=== PATIENT | male | born 1945 | race Caucasian/White ===

== ENCOUNTER 2017-06-19 10:34 | Observation (INO) | payer MEDICARE ==
--- NOTE | 2017-06-19 10:56 | ERNOTE ---
Chest Pain/Cardiac HPI Chief Complaint: Palpitations Time Seen by Provider: 06/19/17 10:34 Source: patient Exam Limitations: no limitations Immunizations: IMMUNIZATION HX Immunizations Up to Date Yes History of Influenza Vaccine No Hx Pneumococcal Vaccination No Allergies/Adverse Reactions: Allergies No Known Allergies Allergy (Verified 03/10/14 18:10) Home Medications: HOME MEDICATIONS Calcium Carbonate/Vitamin D3 [Calcium 600-Vit D3 200 Tablet] 2 each PO DAILY [Last Taken 12/05/13 21:00] Docusate Sodium [Colace] 100 mg PO DAILY 11/08/12 [Last Taken 12/05/13 21:00] Multivitamin [Multivitamins] 1 each PO DAILY 11/08/12 [Last Taken 12/05/13 09:00 ] Simvastatin [Zocor] 40 mg PO HS 11/08/12 [Last Taken 12/05/13 21:00] Timolol Maleate/Pf [Timoptic 0.5% Ocudose Drop] 1 each OP DAILY 11/08/12 [Last Taken 12/05/13 09:00] Alendronate Sodium [Fosamax] 70 mg PO Q7D 12/06/13 [Last Taken Unknown] Aspirin [Aspirin Chewable] 81 mg PO DAILY 12/06/13 [Last Taken 12/05/13 09:00] Amitriptyline HCl [Elavil] 50 mg PO HS 01/14/14 [Last Taken Unknown] Naproxen 500 mg PO BID 01/14/14 [Last Taken Unknown] Albuterol Sulfate [Proair Respiclick] 90 mcg IH QID 06/19/17 [Last Taken Unknown ] Fluticasone Propionate 50 mcg NS BID 06/19/17 [Last Taken Unknown] Ipratropium/Albuterol Sulfate [Combivent Respimat Inhal [place]] 1 puff IH QID [Last Taken Unknown] Mometasone Furoate [Asmanex] 220 mcg IH BID 06/19/17 [Last Taken Unknown] Narrative: Patient was at his doctors office for a routine check up when he was noticed to be 'in and out of being responsive', EKG showed afib with HR in 140's. Patient states that he doesn't feel good which has been going on for a long time. He has a long standing history of COPD since serving in the [place] war, intermittent dizziness, denies any chest pain, no palpitation. Review of Systems - Review of Systems Constitutional: Present: malaise - chronic. Absent: recent illness, fever ENT: Absent: nose congestion Respiratory: Present: shortness of breath - at baseline, cough - at baseline Cardiology: Absent: chest pain, palpitations Gastrointestinal/Abdominal: Absent: nausea, vomiting, abdominal pain Genitourinary: Present: no symptoms reported Musculoskeletal: Present: no symptoms reported Neurological: Present: dizziness/light-headedness. Absent: headache - Patient's Past Medical History Patient History - Medical: No pertinent hx Patient History - Cardiac/Respiratory: COPD, Home O2 Use, Other Patient History - Cancer: No Hx of Cancer Patient History - Surgical Procedures: Other Patient History - Other: None - Social History Living Situations: home Psych History: No pertinent hx Smoking Status: Former smoker Alcohol Use: none - used to be a heavy drinker till the - Immunizations Immunizations Up to Date: Yes Hx Pneumococcal Vaccination: No History of Influenza Vaccine: No Physical Exam - Physical Exam General Appearance: Present: wd/wn, alert, no apparent distress Head Exam: Present: normal inspection Respiratory: Present: no respiratory distress, no accessory muscle use, lungs clear, decreased breath sounds - !! Cardiovascular/Chest: Present: regular rate, rhythm Gastrointestinal/Abdominal: Present: nontender, nondistended, soft Extremity Exam: Present: no edema Neurological Exam: Present: alert, oriented, normal mood/affect Skin Exam: Present: normal color, warm/dry ED Progress - Results and Orders Patient's Lab Results:: I have reviewed the patient's lab results. - Vital Signs Patient's Vital Signs:: I have reviewed the patient's vital signs. Vital Signs: Vital Signs 06/19/17 06/19/17 10:38 10:44 Temperature 36.5 C Pulse Rate 86 86 Respiratory 19 23 H Rate Blood Pressure 119/81 119/81 O2 Sat by Pulse 100 87 L Oximetry - EKG EKG: NSR, no ST T wave changes, other - PAC, no acute changes EKG read: Interp. by me - X-Ray X-Ray #1 X-Ray: chest - chronic, no acute findings Interpretation: Reviewed by me - Progress/Reassessment Chief Complaint: Palpitations Progress Note-Subjective: 06/19/17 10:54 EKG from clinic shows a-fib with HR 146 06/19/17 11:39 discussed Xray and lab results, will get chest CT as elevated d-dimer 06/19/17 12:00 patient blood pressure decreased since coming to ER, on review of clinic data blood pressure at baseline 120's systolic, will start fluids and get LA 06/19/17 12:[address] with patient and family, patient denies any acute symptoms LA elevated but no source of infection, normal WBC, no fever, stable O2 sat 06/19/17 13:01 discussed with gee Leon to admit for observation for new onset afib continue IV fluids, start lovenox, will discussed medical terminologist anticoagulation once admitted schedule Echo Departure Clinical Impression: New onset a-fib - Departure Disposition: [facility] Condition: Stable
[2017-06-19 11:02] LABS: Hematocrit 42.1 % (42.0-52.0); Hemoglobin 13.7 gm/dL (13.5-18.0); Mean Cell Volume 91.3 fl (78-100); Mean Corpuscular Hemoglobin 29.7 pg (27-31); Mean Corpuscular Hgb Conc 32.5 g/dl (32-36); Mean Platelet Volume 9.8 fl (6.0-9.5); Neutrophil # 6.3 K/mm3 (1.3-6.0); Neutrophil % 71.7 % (42-75.0); Platelet Count 279 K/mm3 (150-450); Red Blood Count 4.61 M/mm3 (4.7-6.0); Red Cell Distribution Width 14.3 % (11.5-14.0); White Blood Count 8.8 K/mm3 (4.0-10.5)
[2017-06-19 11:20] LABS: Troponin I 0.021 ng/ml (0.00-0.10)
[2017-06-19 11:23] LABS: Albumin * 3.6 gm/dl (3.4-5.0); Anion Gap 10.4 mmol/L (6.8-13.8); BUN/Creatinine Ratio 23.9 (9.0-21.6); Bilirubin, Total 0.4 mg/dL (0.0-1.1); Carbon Dioxide 31.8 mmol/L (24-32.6); Potassium 4.2 mmol/L (3.4-4.6); TSH * 6.062 uIU/mL (0.358-3.74); Total Protein 7.5 gm/dL (6.2-8.2)
[2017-06-19] MEDS ORDERED: NORMAL SALINE 1,000 ML IV ONE (12:02)
[2017-06-19] MEDS ORDERED: ENOXAPARIN SODIUM 80 MG/0.8 ML DISP.SYRIN SC SCH (13:15)
[2017-06-19 13:39] LABS: Urine Bilirubin Negative (NEGATIVE); Urine Blood Negative /ul (NEGATIVE); Urine Ketone Negative (NEGATIVE); Urine Nitrite Negative (NEGATIVE); Urine Protein Negative (NEGATIVE); Urine Specific Gravity 1.015 SP.GR. (1.005-1.030); Urine Urobilinogen Normal (NORMAL)
[2017-06-19 13:49] LABS: Urine Appearance Clear; Urine Bacteria None Seen; Urine Color Yellow; Urine RBC None Seen /hpf (0-5); Urine WBC 0-5 /hpf (0-5)
--- NOTE | 2017-06-19 16:30 | HP ---
Chief Complaint - Chief Complaint Date of Service: 06/19/17 Time of Service: 16:14 Chief Complaint: dizziness/lightheadedness History of Present Illness: Kolby Barahona, is a 71-year-old white male, with previous medical history of COPD , hyperlipidemia, degenerative osteoarthritis who was admitted on 06/19/2017 for dizziness and lightheadedness. The patient while in the waiting room could not read the signs on the wall and felt that there was something wrong with him. When he walked in to my office for his regular follow-up, he noticed that he was getting dizzy and lightheaded. When he was examined he was found to have a rapid, irregular heartbeat and an EKG was done. This showed the patient was in atrial fibrillation with rapid ventricular response of 147 and patient started to feel like he was going to pass out. His blood pressure was 80/50. He was then transferred to the emergency room for further evaluation. By the time he got to the emergency room as per emergency room doctor he was back to normal sinus rhythm with a blood pressure in the low 100s over 70s. Soon after that he again started to have decrease in his blood pressure in the 90s. He was then admitted for observation, evaluation and IV hydration. His CTS did not shoe P.E., tropronin was negative, TSH was elevated. - Patient's Past Medical History Patient History - Medical: Osteoarthritis, Osteoporosis Patient History - Cardiac/Respiratory: COPD, Hyperlipidemia, Home O2 Use, Other Patient History - Cancer: No Hx of Cancer Patient History - Surgical Procedures: Cataracts, Pneumothorax, Other Patient History - Other: None - Family History Mother Family History - Medical: , History Unknown Family History - Cardiac/Respiratory: History Unknown Family History - Cancer: History Unknown Father Family History - Medical: Family History - Cardiac/Respiratory: History Unknown Family History - Cancer: Bone, Lung Brother Family History - Medical: Family History - Cardiac/Respiratory: History Unknown Family History - Cancer: History Unknown Sister Family History - Medical: No pertinent hx Family History - Cardiac/Respiratory: No pertinent hx Family History - Cancer: No pertinent family hx - Social History Living Situations: spouse Psych History: No pertinent hx Smoking Status: Former smoker Alcohol Use: none Drug Use: none - Immunizations Immunizations Up to Date: Yes Hx Pneumococcal Vaccination: No History of Influenza Vaccine: No Review Of Systems (GEN) - Review of Systems Generalized/Overall Review: Absent: Chills, Fever EENTM: Present: Blurred Vision Respiratory: Present: Cough. Absent: Shortness of Breath Cardiac: Absent: Chest Pain, Palpitations Abdominal: Absent: Nausea, Vomiting Genitourinary: Absent: Urgency, Frequency Musculoskeletal: Present: Joint Pain Immunizations: IMMUNIZATION HX Immunizations Up to Date Yes History of Influenza Vaccine No Hx Pneumococcal Vaccination No Allergies/Adverse Reactions: Allergies Allergy/AdvReac Type Severity Reaction Status Date / Time No Known Allergies Allergy Verified 06/19/17 15:48 Home Medications: HOME MEDICATIONS Calcium Carbonate/Vitamin D3 [Calcium 600-Vit D3 200 Tablet] 2 each PO DAILY [Last Taken 12/05/13 21:00] Docusate Sodium [Colace] 100 mg PO DAILY 11/08/12 [Last Taken 12/05/13 21:00] Multivitamin [Multivitamins] 1 each PO DAILY 11/08/12 [Last Taken 12/05/13 09:00 ] Simvastatin [Zocor] 40 mg PO HS 11/08/12 [Last Taken 12/05/13 21:00] Timolol Maleate/Pf [Timoptic 0.5% Ocudose Drop] 1 each OP DAILY 11/08/12 [Last Taken 12/05/13 09:00] Alendronate Sodium [Fosamax] 70 mg PO Q7D 12/06/13 [Last Taken Unknown] Aspirin [Aspirin Chewable] 81 mg PO DAILY 12/06/13 [Last Taken 12/05/13 09:00] Amitriptyline HCl [Elavil] 50 mg PO HS 01/14/14 [Last Taken Unknown] Naproxen 500 mg PO BID 01/14/14 [Last Taken Unknown] Albuterol Sulfate [Proair Respiclick] 90 mcg IH QID 06/19/17 [Last Taken Unknown ] Fluticasone Propionate 50 mcg NS BID 06/19/17 [Last Taken Unknown] Ipratropium/Albuterol Sulfate [Combivent Respimat Inhal [place]] 1 puff IH QID [Last Taken Unknown] Mometasone Furoate [Asmanex] 220 mcg IH BID 06/19/17 [Last Taken Unknown] Exam - Exam Vital Signs: Vital Signs - Last Taken Temp 36.2 C L 06/19/17 15:08 Pulse 68 06/19/17 15:08 Resp 20 06/19/17 15:08 BP 115/66 06/19/17 15:08 Pulse Ox 100 06/19/17 15:08 Constitutional: Present: Alert, Oriented x3, Cooperative ENT Exam: Present: hearing grossly normal Eye Exam: bilateral eye: normal inspection, PERRL, EOMI Neck: Present: supple Respiratory: Present: decreased breath sounds, No rales, No wheezing Cardiovascular/Chest: Present: regular rate, rhythm, no JVD, no murmur Abdomen: Present: Normal bowel sounds, soft, nontender, nondistended Extremity: Present: no pedal edema, no calf tenderness Diagnostic Studies: Laboratory Results WBC 8.8 K/mm3 (4.0-10.5) 06/19/17 10:55 RBC 4.61 M/mm3 (4.7-6.0) L 06/19/17 10:55 Hgb 13.7 gm/dL (13.5-18.0) 06/19/17 10:55 Hct 42.1 % (42.0-52.0) 06/19/17 10:55 MCV 91.3 fl (78-100) 06/19/17 10:55 MCH 29.7 pg (27-31) 06/19/17 10:55 MCHC 32.5 g/dl (32-36) 06/19/17 10:55 RDW 14.3 % (11.5-14.0) H 06/19/17 10:55 Plt Count 279 K/mm3 (150-450) 06/19/17 10:55 MPV 9.8 fl (6.0-9.5) H 06/19/17 10:55 Immature Gran % (Auto) 0.20 % (0.001-0.429) 06/19/17 10:55 Immature Gran # (Auto) 0.02 K/mm3 (0.000-0.0310) 06/19/17 10:55 Neutrophils % 71.7 % (42-75.0) 06/19/17 10:55 Lymphocytes % 17.4 % (20-51) L 06/19/17 10:55 Monocytes % 9.3 % (0.0-9) H 06/19/17 10:55 Eosinophils % 1.1 % (0.0-3.0) 06/19/17 10:55 Basophils % 0.3 % (0.0-1.0) 06/19/17 10:55 Nucleated RBC % 0.0 k/mm3 (0-1) 06/19/17 10:55 Neutrophils # 6.3 K/mm3 (1.3-6.0) H 06/19/17 10:55 Lymphocytes # 1.5 k/mm3 (1.5-3.5) 06/19/17 10:55 Monocytes # 0.8 k/mm3 (0.0-1.0) 06/19/17 10:55 Eosinophils # 0.1 k/mm3 (0.0-0.7) 06/19/17 10:55 Absolute Basophils 0.0 k/mm3 (0.0-0.1) 06/19/17 10:55 D-Dimer 0.53 mg/L (0.19-0.49) H 06/19/17 10:55 Sodium 143 mmol/L (132-142) H 06/19/17 10:55 Plasma Sodium 143 mmol/L (130-142) H 06/19/17 10:55 Potassium 4.2 mmol/L (3.4-4.6) 06/19/17 10:55 Chloride 105 mmol/L (97-106) 06/19/17 10:55 Carbon Dioxide 31.8 mmol/L (24-32.6) 06/19/17 10:55 Anion Gap 10.4 mmol/L (6.8-13.8) 06/19/17 10:55 BUN 22 mg/dL (6-23) 06/19/17 10:55 Creatinine 0.92 mg/dL (0.4-1.4) 06/19/17 10:55 Est GFR (Non-Af Amer) 86 mL/min (60-130) 06/19/17 10:55 BUN/Creatinine Ratio 23.9 (9.0-21.6) H 06/19/17 10:55 Random Glucose 114 mg/dL (70-110) H 06/19/17 10:55 Lactic Acid, Venous 2.3 mmol/L (0.4-1.9) H* 06/19/17 10:55 Calcium 9.0 mg/dL (7.9-10.9) 06/19/17 10:55 Calcium Adj for Albumin 9.0 mg/dL (8.4-10.2) 06/19/17 10:55 Total Bilirubin 0.4 mg/dL (0.0-1.1) 06/19/17 10:55 AST 14 U/L (0-48) 06/19/17 10:55 ALT 19 U/L (19-67) 06/19/17 10:55 Alkaline Phosphatase 80 U/L (50-170) 06/19/17 10:55 Troponin I 0.021 ng/ml (0.00-0.10) 06/19/17 10:55 Total Protein 7.5 gm/dL (6.2-8.2) 06/19/17 10:55 Albumin 3.6 gm/dl (3.4-5.0) 06/19/17 10:55 TSH 6.062 uIU/mL (0.358-3.74) H 06/19/17 10:55 Free T4 1.23 ng/dL (0.76-1.46) 06/19/17 10:55 Urine Color Yellow 06/19/17 13:29 Urine Appearance Clear 06/19/17 13:29 Urine pH 6.0 pH (5.0-7.0) 06/19/17 13:29 Ur Specific [employer] 1.015 SP.GR. (1.005-1.030) 06/19/17 13:29 Urine Protein Negative mg/dL (NEGATIVE) 06/19/17 13:29 Urine Glucose (UA) Negative mg/dL (NEGATIVE) 06/19/17 13:29 Urine Ketones Negative mg/dL (NEGATIVE) 06/19/17 13:29 Urine Blood Negative /ul (NEGATIVE) 06/19/17 13:29 Urine Nitrate Negative (NEGATIVE) 06/19/17 13:29 Urine Bilirubin Negative mg/dl (NEGATIVE) 06/19/17 13:29 Urine Urobilinogen Normal EU/dl (NORMAL) 06/19/17 13:29 Ur Leukocyte Esterase Negative /ul (NEGATIVE) 06/19/17 13:29 Urine RBC None seen /hpf (0-5) 06/19/17 13:29 Urine WBC 0-5 /hpf (0-5) 06/19/17 13:29 Ur Epithelial Cells None seen /hpf (0-5) 06/19/17 13:29 Urine Bacteria None seen (NONE) 06/19/17 13:29 Urine Culture Comments No culture indicated 06/19/17 13:29 Assessment/Plan - Assessment/Plan (1) New onset a-fib Assessment: paroxysmal AFib. He is back to NSR. Based on his CHADS score whic is 0, he may or not be on ASA but will keep him on ASA since he is already been on it. Will get Echocardiogram . Problem: Acute (2) Dizzinesses Problem: Resolved (3) Light-headedness Problem: Resolved (4) Osteoarthritis Problem: Chronic (5) Chronic obstructive lung disease Assessment: continue with breathing treatments. Problem: Chronic
[2017-06-19] MEDS: NORMAL SALINE 1,000 ML IV PRN (16:38)
[2017-06-19] MEDS ORDERED: FLU VACC QS2017-18(6MOS UP)/PF 60 MCG/0.5 ML SYRINGE IM ONE (17:00)
[2017-06-19] MEDS: ALBUTEROL SULFATE 2.5 MG/0.5 ML VIAL.NEB IH SCH (18:18)
[2017-06-19] MEDS: ALBUTEROL SULFATE/IPRATROPIUM 3 ML NEBU IH SCH (18:20)
[2017-06-19] MEDS: BUDESONIDE 0.5 MG/2 ML VIAL.NEB IH SCH (18:20)
[2017-06-19] MEDS: METOPROLOL TARTRATE 25 MG TABLET PO SCH (18:49)
[2017-06-19] MEDS: FLUTICASONE PROPIONATE 120 SPRAY INHALER NS SCH (20:15)
[2017-06-19] MEDS ORDERED: SIMVASTATIN 40 MG TABLET PO SCH (21:00)
[2017-06-19] MEDS ORDERED: AMITRIPTYLINE HCL 50 MG TABLET PO SCH (21:00)
[2017-06-20] MEDS: NORMAL SALINE 1,000 ML IV PRN ×2 (00:03→08:05)
[2017-06-20] MEDS: ALBUTEROL SULFATE/IPRATROPIUM 3 ML NEBU IH SCH ×2 (06:17→10:04)
[2017-06-20] MEDS: ALBUTEROL SULFATE 2.5 MG/0.5 ML VIAL.NEB IH SCH ×2 (06:18→10:04)
[2017-06-20] MEDS: BUDESONIDE 0.5 MG/2 ML VIAL.NEB IH SCH (06:19)
[2017-06-20] MEDS: METOPROLOL TARTRATE 25 MG TABLET PO SCH (06:44)
[2017-06-20] MEDS: FLUTICASONE PROPIONATE 120 SPRAY INHALER NS SCH (08:07)
[2017-06-20] MEDS ORDERED: METOPROLOL TARTRATE 25 MG TABLET PO SCH (08:25)
[2017-06-20] MEDS ORDERED: TIMOLOL MALEATE 50 DROP BTL OP SCH (09:00)
[2017-06-20] MEDS ORDERED: ASPIRIN 325 MG TABLET.DR PO SCH (09:00)
[2017-06-20] MEDS ORDERED: MULTIVITAMINS 1 CAP CAPSULE PO SCH (09:00)
[2017-06-20] MEDS ORDERED: DOCUSATE SODIUM 100 MG CAPSULE PO SCH (09:00)
--- NOTE | 2017-06-20 11:30 | DS ---
(1) New onset a-fib Diagnosis(s): paroxysmal AFib Problem: Resolved (2) Dizzinesses Problem: Resolved (3) Light-headedness Problem: Resolved (4) Osteoarthritis Problem: Chronic (5) Chronic obstructive lung disease Problem: Chronic Description of Stay: Kolby Barahona, is a 71-year-old white male, with previous medical history of COPD , hyperlipidemia, degenerative osteoarthritis who was admitted on 06/19/2017 for dizziness and lightheadedness. The patient while in the waiting room could not read the signs on the wall and felt that there was something wrong with him. When he walked in to my office for his regular follow-up, he noticed that he was getting dizzy and lightheaded. When he was examined he was found to have a rapid, irregular heartbeat and an EKG was done. This showed the patient was in atrial fibrillation with rapid ventricular response of 147 and patient started to feel like he was going to pass out. His blood pressure was 80/50. He was then transferred to the emergency room for further evaluation. By the time he got to the emergency room as per emergency room doctor he was back to normal sinus rhythm with a blood pressure in the low 100s over 70s. Soon after that he again started to have decrease in his blood pressure in the 90s. He was then admitted for observation, evaluation and IV hydration. His CTS did not show P.E., tropronin was negative, TSH was elevated with normal FT4. Overnight he stayed in NSR, HR in the 50's as I started him on metoprolol. His CHADS score is 0 and so will keep him on his ASA anyway. Procedures Performed: none Discharge Disposition: Home self care Disposition: Home self-care Condition: Stable Discharge Activity: Activity as tolerated Discharge Diet: General/regular food Referrals: Marcellus Peterson MD [Primary Care Provider] - Additional Patient Instructions (free text): Please make TCM appointment at discharge,if applicable. Thank you! Iman @ ext. [phone]. Follow up with PCP in 1 week. Prescriptions (Any new or edited meds): Metoprolol Tartrate [Lopressor] 12.5 mg PO Q12H #60 tablet Complete Home Medications List: Complete Home Medication List: Calcium Carbonate/Vitamin D3 [Calcium 600-Vit D3 200 Tablet] 2 each PO DAILY Docusate Sodium [Colace] 100 mg PO DAILY 11/08/12 Multivitamin [Multivitamins] 1 each PO DAILY 11/08/12 Simvastatin [Zocor] 40 mg PO HS 11/08/12 Timolol Maleate/Pf [Timoptic 0.5% Ocudose Drop] 1 each OP DAILY 11/08/12 Alendronate Sodium [Fosamax] 70 mg PO Q7D 12/06/13 Aspirin [Aspirin Chewable] 81 mg PO DAILY 12/06/13 Amitriptyline HCl [Elavil] 50 mg PO HS 01/14/14 Naproxen 500 mg PO BID 01/14/14 Albuterol Sulfate [Proair Respiclick] 90 mcg IH QID 06/19/17 Fluticasone Propionate 50 mcg NS BID 06/19/17 Ipratropium/Albuterol Sulfate [Combivent Respimat Inhal [place]] 1 puff IH QID Mometasone Furoate [Asmanex] 220 mcg IH BID 06/19/17 Metoprolol Tartrate [Lopressor] 12.5 mg PO Q12H #60 tablet 06/20/17
[2017-06-20 11:41] VITALS: BP 142/74
[2017-06-21] MEDS ORDERED: ALENDRONATE SODIUM 70 MG TABLET PO SCH (06:00)
--- NOTE | 2017-06-25 10:28 | ECHO ---
This report is available in the EMR
== END 2017-06-20 15:03 | disposition home or self-care (01) ==
LOC: ER 10:34 → MS 13:11
PROVIDERS: ADMIT Internal Medicine; ATTEND Internal Medicine
DX: I48.91 Unspecified atrial fibrillation (principal); R42 Dizziness and giddiness; M15.9 Polyosteoarthritis, unspecified; J44.9 Chronic obstructive pulmonary disease, unspecified; Z87.891 Personal history of nicotine dependence; E78.5 Hyperlipidemia, unspecified; M81.0 Age-related osteoporosis without current pathological fracture; Z23 Encounter for immunization
CPT/HCPCS: 36415; 71020; 71275; 80053; 81001; 83605; 84439; 84443; 84481; 84484; 85025; 85379; 90686; 93005; 93306; 94640; 96372; 99284; G0008; G0378

== ENCOUNTER 2017-08-14 11:55 | Emergency (ER) | payer MEDICARE ==
[2017-08-14] MEDS ORDERED: ALBUTEROL SULFATE/IPRATROPIUM 3 ML NEBU IH ONE ×4 (12:04→13:48)
[2017-08-14] MEDS ORDERED: METHYLPREDNISOLONE SOD SUCC/PF 40 MG/ML VIAL IV ONE (12:05)
--- NOTE | 2017-08-14 12:15 | ERNOTE ---
Dyspnea - Date Date of Service: 08/14/17 - General Presenting Symptoms: shortness of breath Time Seen by Provider: 08/14/17 12:04 Source: patient Exam Limitations: no limitations - Immun/Allergies/Home Medications Immunizations: IMMUNIZATION HX Immunizations Up to Date Yes History of Influenza Vaccine No Hx Pneumococcal Vaccination No Allergies/Adverse Reactions: Allergies No Known Allergies Allergy (Verified 08/14/17 12:09) Home Medications: HOME MEDICATIONS Calcium Carbonate/Vitamin D3 [Calcium 600-Vit D3 200 Tablet] 2 each PO DAILY [Last Taken 12/05/13 21:00] Docusate Sodium [Colace] 100 mg PO DAILY 11/08/12 [Last Taken 12/05/13 21:00] Multivitamin [Multivitamins] 1 each PO DAILY 11/08/12 [Last Taken 12/05/13 09:00 ] Simvastatin [Zocor] 40 mg PO HS 11/08/12 [Last Taken 12/05/13 21:00] Timolol Maleate/Pf [Timoptic 0.5% Ocudose Drop] 1 each OP DAILY 11/08/12 [Last Taken 12/05/13 09:00] Alendronate Sodium [Fosamax] 70 mg PO Q7D 12/06/13 [Last Taken Unknown] Aspirin [Aspirin Chewable] 81 mg PO DAILY 12/06/13 [Last Taken 12/05/13 09:00] Amitriptyline HCl [Elavil] 50 mg PO HS 01/14/14 [Last Taken Unknown] Naproxen 500 mg PO BID 01/14/14 [Last Taken Unknown] Albuterol Sulfate [Proair Respiclick] 90 mcg IH QID 06/19/17 [Last Taken Unknown ] Fluticasone Propionate 50 mcg NS BID 06/19/17 [Last Taken Unknown] Mometasone Furoate [Asmanex] 220 mcg IH BID 06/19/17 [Last Taken Unknown] Metoprolol Tartrate [Lopressor] 12.5 mg PO Q12H #60 tablet 06/20/17 [Last Taken Unknown] Albuterol Sulfate [Albuterol Sulfate 2.5 MG/3 ML] 2.5 mg IH Q4H #100 vial.neb [Last Taken Unknown] Albuterol Sulfate/Ipratropium [Duoneb 2.5-0.5MG/3ML Soln] 3 ml IH QID #100 vial 08/14/17 [Last Taken Unknown] Doxycycline Monohydrate 100 mg PO BID #20 tablet 08/14/17 [Last Taken Unknown] predniSONE [Prednisone] 3 tab PO DAILY #9 tab 08/14/17 [Last Taken Unknown] - History of Present Illness Narrative: Pt. comes in with c/o SOB for 12 hours. Pt. also states that he has had a cough and sore throat for a week. Pt. denies any NVD, CP, fever, dizziness, lightheadedness, or recent injury. Pt. is a home O2 user and has a hx of COPD. Pt. denies any breathing treatments today. Review of Systems - Review of Systems Constitutional: Present: weakness, fatigue, malaise. Absent: fever, chills, weight loss, fussy, decreased activity level EYE: Present: no symptoms reported ENT: Present: no symptoms reported Respiratory: Present: shortness of breath, cough, orthopnea, wheezing. Absent: stridor Cardiology: Present: no symptoms reported. Absent: chest pain, palpitations, edema Gastrointestinal/Abdominal: Present: no symptoms reported. Absent: nausea, vomiting, diarrhea Genitourinary: Present: no symptoms reported Musculoskeletal: Present: no symptoms reported. Absent: back pain, joint pain Skin: Present: no symptoms reported Neurological: Present: no symptoms reported. Absent: headache, dizziness/light- headedness, numbness, tingling Endocrine: Present: no symptoms reported Hematologic/Lymphatic: Present: no symptoms reported Psych: Present: no symptoms reported All Other Systems: All systems neg except as marked - Patient's Past Medical History Patient History - Medical: Osteoarthritis, Osteoporosis Patient History - Cardiac/Respiratory: COPD, Hyperlipidemia, Home O2 Use, Other Patient History - Cancer: No Hx of Cancer Patient History - Surgical Procedures: Cataracts, Pneumothorax, Other Patient History - Other: None - Family History Mother Family History - Medical: , History Unknown Family History - Cardiac/Respiratory: History Unknown Family History - Cancer: History Unknown Father Family History - Medical: Family History - Cardiac/Respiratory: History Unknown Family History - Cancer: Bone, Lung Brother Family History - Medical: Family History - Cardiac/Respiratory: History Unknown Family History - Cancer: History Unknown Sister Family History - Medical: No pertinent hx Family History - Cardiac/Respiratory: No pertinent hx Family History - Cancer: No pertinent family hx - Social History Psych History: No pertinent hx - Immunizations Immunizations Up to Date: Yes Hx Pneumococcal Vaccination: No History of Influenza Vaccine: No Physical Exam - Physical Exam General Appearance: Present: wd/wn, alert, no apparent distress Head Exam: Present: normal inspection, no evidence of injury Eye Exam: Normal inspection: bilateral, PERRL: bilateral, EOMI: bilateral Ears, Nose, Throat: Present: normal ENT inspection, normal pharynx Neck: Present: normal inspection, nontender, supple, full range of motion. Absent: lymphadenopathy (R), lymphadenopathy (L) Respiratory: Present: respiratory distress, accessory muscle use, decreased breath sounds, rhonchi - throughout, wheezing - throughout Cardiovascular/Chest: Present: no murmur, normal peripheral pulses, tachycardia Gastrointestinal/Abdominal: Present: normal bowel sounds, nontender, nondistended, soft, no organomegaly Back Exam: Present: normal inspection Extremity Exam: Present: normal inspection Neurological Exam: Present: alert, oriented, normal mood/affect, no motor/ sensory deficits Skin Exam: Present: normal color, warm/dry. Absent: pallor, skin rash ED Progress - Date and Time Seen: Date and Time: 08/14/17 13:36 Pt. is normopoxic on 1LNC and he usually wears 2 LNC and his lung sounds are much improved with breathing treatments so will have pt start this and only use inhaler when breathing improves or when not at home. - Results and Orders Patient's Lab Results:: I have reviewed the patient's lab results. - Vital Signs Patient's Vital Signs:: I have reviewed the patient's vital signs. - EKG EKG: nonspecific ST T wave changes, other - Sinus tach EKG read: Reviewed by me EKG Comments: Interp by Dr Luna - X-Ray X-Ray #1 X-Ray: chest Interpretation: Reviewed by me X-ray Comments: chronic changes no acute. - Progress/Reassessment Progress:: Improved Departure Clinical Impression: Chronic obstructive lung disease, Dyspnea - Departure Disposition: Home self-care Condition: Good Instructions: Chronic Obstructive Pulmonary Disease, [id number] Additional Instructions: 1. Only take Albuterol inhaler when not home to take nebulizer treatment. 2. Take Albuterol Nebulizer and Duoneb every three hours opposite each other. 3. Follow up with primary provider in 2-3 days. Referrals: Marcellus Peterson MD [Primary Care Provider] - Prescriptions: Albuterol Sulfate [Albuterol Sulfate 2.5 MG/3 ML] 2.5 mg IH Q4H #100 vial.neb Albuterol Sulfate/Ipratropium [Duoneb 2.5-0.5MG/3ML Soln] 3 ml IH QID #100 vial Doxycycline Monohydrate 100 mg PO BID #20 tablet predniSONE [Prednisone] 3 tab PO DAILY #9 tab
[2017-08-14] MEDS ORDERED: METHYLPREDNISOLONE SOD SUCC/PF 40 MG/ML VIAL ONE (12:16)
[2017-08-14 12:24] LABS: Hematocrit 39.8 % (42.0-52.0); Hemoglobin 13.3 gm/dL (13.5-18.0); Mean Cell Volume 89.6 fl (78-100); Mean Corpuscular Hgb Conc 33.4 g/dl (32-36); Mean Platelet Volume 9.5 fl (6.0-9.5); Platelet Count 312 K/mm3 (150-450); Red Blood Count 4.44 M/mm3 (4.7-6.0); Red Cell Distribution Width 14.2 % (11.5-14.0); White Blood Count 11.7 K/mm3 (4.0-10.5)
[2017-08-14 12:29] LABS: Total Cells Counted 100
[2017-08-14 12:35] LABS: Band 5 % (0-2.0); Eosinophil 1 % (0-3); Lymphocyte 15 % (20-51); Monocyte 13 % (0-9); Neutrophil 66 % (42-75); Neutrophil # 7.7 K/mm3 (1.3-6.0)
[2017-08-14 12:47] LABS: ALT 17 U/L (19-67); AST 16 U/L (0-48); Albumin * 3.4 gm/dl (3.4-5.0); Alkaline Phosphatase * 81 U/L (50-170); Anion Gap 14.5 mmol/L (6.8-13.8); BNP * 151 pg/mL (5-350); BUN/Creatinine Ratio 21.9 (9.0-21.6); Bilirubin, Total 0.6 mg/dL (0.0-1.1); Blood Urea Nitrogen 16 mg/dL (6-23); Ca. Corrected For Albumin 9.4 mg/dL (8.4-10.2); Calcium * 9.2 mg/dL (7.9-10.9); Carbon Dioxide 28.3 mmol/L (24-32.6); Chloride 100 mmol/L (97-106); Glucose * 118 mg/dL (70-110); Magnesium 1.9 mg/dL (1.2-2.8); Phosphorus 4.2 mg/dL (2.2-4.2); Potassium 3.8 mmol/L (3.4-4.6); Sodium 139 mmol/L (132-142); Total Protein 7.9 gm/dL (6.2-8.2)
[2017-08-14 12:48] LABS: Troponin I Less than 0.017 ng/ml (0.00-0.10)
[2017-08-14] MEDS ORDERED: ALBUTEROL SULFATE 2.5 MG/0.5 ML VIAL.NEB IH ONE ×2 (13:29→13:48)
[2017-08-14 13:47] VITALS: BP 91/68
[2017-08-14] MEDS ORDERED: DOXYCYCLINE HYCLATE 100 MG TABLET PO ONE (13:47)
[2017-08-14] MEDS ORDERED: DOXYCYCLINE HYCLATE 100 MG TABLET ONE (13:48)
== END 2017-08-14 13:57 | disposition home or self-care (01) ==
LOC: ER 11:55
PROC: 4A033R1 Measurement of Arterial Saturation, Peripheral, Percutaneous Approach (ICD-10-PCS; principal; 2017-08-14)
DX: J44.9 Chronic obstructive pulmonary disease, unspecified (principal); R06.00 Dyspnea, unspecified; E78.5 Hyperlipidemia, unspecified

== ENCOUNTER 2017-11-14 10:38 | Emergency (ER) | payer MEDICARE ==
[2017-11-14] MEDS ORDERED: ASPIRIN 81 MG TAB.CHEW PO ONE (10:46)
[2017-11-14] MEDS ORDERED: ASPIRIN 81 MG TAB.CHEW ONE (10:47)
[2017-11-14 10:58] LABS: Hematocrit 41.5 % (42.0-52.0); Mean Cell Volume 90.2 fl (78-100); Mean Corpuscular Hemoglobin 30.4 pg (27-31); Mean Corpuscular Hgb Conc 33.7 g/dl (32-36); Mean Platelet Volume 9.2 fl (6.0-9.5); Neutrophil # 6.9 K/mm3 (1.3-6.0); Neutrophil % 75.1 % (42-75.0); Platelet Count 310 K/mm3 (150-450); Red Cell Distribution Width 14.6 % (11.5-14.0); White Blood Count 9.2 K/mm3 (4.0-10.5)
[2017-11-14] MEDS ORDERED: METHYLPREDNISOLONE SOD SUCC/PF 125 MG/2 ML VIAL IV ONE (11:06)
[2017-11-14 11:15] LABS: ALT 56 U/L (19-67); AST 22 U/L (0-48); Albumin * 3.5 gm/dl (3.4-5.0); Alkaline Phosphatase * 88 U/L (50-170); Anion Gap 15.4 mmol/L (6.8-13.8); BUN/Creatinine Ratio 25.3 (9.0-21.6); Bilirubin, Total 0.3 mg/dL (0.0-1.1); Blood Urea Nitrogen 21 mg/dL (6-23); Ca. Corrected For Albumin 9.3 mg/dL (8.4-10.2); Calcium * 9.2 mg/dL (7.9-10.9); Carbon Dioxide 24.7 mmol/L (24-32.6); Chloride 103 mmol/L (97-106); Glucose * 112 mg/dL (70-110); Potassium 4.1 mmol/L (3.4-4.6); Sodium 139 mmol/L (132-142); Total Protein 7.2 gm/dL (6.2-8.2)
--- NOTE | 2017-11-14 11:16 | ERNOTE ---
Dyspnea - General Presenting Symptoms: shortness of breath Time Seen by Provider: 11/14/17 11:00 Source: patient Exam Limitations: no limitations - Immun/Allergies/Home Medications Immunizations: IMMUNIZATION HX Immunizations Up to Date Yes History of Influenza Vaccine Yes Hx Pneumococcal Vaccination Yes Allergies/Adverse Reactions: Allergies No Known Allergies Allergy (Verified 11/14/17 10:52) Home Medications: HOME MEDICATIONS Calcium Carbonate/Vitamin D3 [Calcium 600-Vit D3 200 Tablet] 2 each PO DAILY [Last Taken 12/05/13 21:00] Docusate Sodium [Colace] 100 mg PO DAILY 11/08/12 [Last Taken 12/05/13 21:00] Multivitamin [Multivitamins] 1 each PO DAILY 11/08/12 [Last Taken 12/05/13 09:00 ] Simvastatin [Zocor] 40 mg PO HS 11/08/12 [Last Taken 12/05/13 21:00] Timolol Maleate/Pf [Timoptic 0.5% Ocudose Drop] 1 each OP DAILY 11/08/12 [Last Taken 12/05/13 09:00] Alendronate Sodium [Fosamax] 70 mg PO Q7D 12/06/13 [Last Taken Unknown] Aspirin [Aspirin Chewable] 81 mg PO DAILY 12/06/13 [Last Taken 12/05/13 09:00] Amitriptyline HCl [Elavil] 50 mg PO HS 01/14/14 [Last Taken Unknown] Naproxen 500 mg PO BID 01/14/14 [Last Taken Unknown] Fluticasone Propionate 50 mcg NS BID 06/19/17 [Last Taken Unknown] Mometasone Furoate [Asmanex] 220 mcg IH BID 06/19/17 [Last Taken Unknown] Metoprolol Tartrate [Lopressor] 12.5 mg PO Q12H #60 tablet 06/20/17 [Last Taken Unknown] Albuterol Sulfate [Albuterol Sulfate 2.5 MG/3 ML] 2.5 mg IH Q4H #100 vial.neb [Last Taken Unknown] Doxycycline Monohydrate 100 mg PO BID #20 tablet 11/14/17 [Last Taken Unknown] Ipratropium/Albuterol Sulfate [Combivent Respimat Inhal Emily] 1 puff IH QID [Last Taken Unknown] Mometasone Furoate [Asmanex] 220 mcg IH BID 11/14/17 [Last Taken Unknown] predniSONE [Prednisone] 3 tab PO DAILY #18 tab 11/14/17 [Last Taken Unknown] - History of Present Illness Narrative: Patient has a history of COPD and is on 2liter home O2. Over the last week he has been increasingly short of breath, only able to walk about 20 feet without having to stop, also increased cough with yellow sputum. He denies fever and chest pain, mild chronic leg swelling usually L>R He went to his PCP and was send over as his heart rate was elevated and there was a concern that he might be in a-fib again. Treatment [employer]: oxygen, albuterol - this am Initiating event: Reports: upper resp illness. Denies: out of meds, exposure to smoke Frequency of episodes: Reports: frequent episodes - 3-4 times a year Modifying Factors - (Improves): Reports: albuterol, rest Modifying Factors (Worsens): Reports: activity Associated Symptoms-Dyspnea: Denies: fever/chills, sweating, chest pain/ discomfort, leg/calf pain, dizziness, tingling of hands/face Prior Treatment: Denies: currently on antibiotics Review of Systems - Review of Systems Constitutional: Absent: recent illness, fever, chills EYE: Absent: vision changes ENT: Present: nasal drainage, sore throat. Absent: ear pain, throat swelling Respiratory: Present: See HPI, shortness of breath, cough Cardiology: Absent: chest pain Gastrointestinal/Abdominal: Absent: nausea, vomiting, diarrhea, abdominal pain Genitourinary: Present: no symptoms reported Musculoskeletal: Present: no symptoms reported Skin: Absent: rash Neurological: Absent: headache - Patient's Past Medical History Patient History - Medical: Osteoarthritis, Osteoporosis Patient History - Cardiac/Respiratory: Atrial Fibrillation, COPD, Hyperlipidemia , Home O2 Use, Other Patient History - Cancer: No Hx of Cancer Patient History - Surgical Procedures: Cataracts, Pneumothorax, Other Patient History - Other: None - Family History Mother Family History - Medical: , History Unknown Family History - Cardiac/Respiratory: History Unknown Family History - Cancer: History Unknown Father Family History - Medical: Family History - Cardiac/Respiratory: History Unknown Family History - Cancer: Bone, Lung Brother Family History - Medical: Family History - Cardiac/Respiratory: History Unknown Family History - Cancer: History Unknown Sister Family History - Medical: No pertinent hx Family History - Cardiac/Respiratory: No pertinent hx Family History - Cancer: No pertinent family hx - Social History Living Situations: home Psych History: No pertinent hx Smoking Status: Former smoker Alcohol Use: none Drug Use: none - Immunizations Immunizations Up to Date: Yes Hx Pneumococcal Vaccination: Yes History of Influenza Vaccine: Yes Physical Exam - Physical Exam General Appearance: Present: wd/wn, alert, no apparent distress Eye Exam: Normal inspection: bilateral Ears, Nose, Throat: Present: normal ENT inspection, normal pharynx Respiratory: Present: no respiratory distress, lungs clear, decreased breath sounds, expiration (prolonged) Cardiovascular/Chest: Present: regular rate, rhythm, no murmur Gastrointestinal/Abdominal: Present: normal bowel sounds, nontender, nondistended, soft Extremity Exam: Present: pedal edema - +1 bilateral Neurological Exam: Present: alert, oriented, normal mood/affect Skin Exam: Present: normal color, warm/dry ED Progress - Results and Orders Patient's Lab Results:: I have reviewed the patient's lab results. - Vital Signs Patient's Vital Signs:: I have reviewed the patient's vital signs. Vital Signs: Vital Signs 11/14/17 11/14/17 11/14/17 10:45 10:58 11:00 Temperature 37.2 C Pulse Rate 107 H 113 H 105 H Respiratory 21 H 19 Rate Blood Pressure 135/84 135/84 O2 Sat by Pulse 97 96 Oximetry - EKG EKG: NSR - sinustachy, unchanged from 07/2017, other - enlarged P, no ST changes EKG read: Interp. by me - X-Ray X-Ray #1 X-Ray: chest - no acute changes Interpretation: Reviewed by me - Progress/Reassessment Chief Complaint: Dyspnea Progress Note-Subjective: 11/14/17 12:33 discussed test results, patient comfortable Departure Clinical Impression: COPD exacerbation - Departure Disposition: Home Follow Up Needed Condition: Good Instructions: Chronic Obstructive Pulmonary Disease Exacerbation, [id number] Additional Instructions: call your doctor for a follow up appointment do not take your calcium while you are on the antibiotic Referrals: Marcellus Peterson MD [Primary Care Provider] - Prescriptions: Doxycycline Monohydrate 100 mg PO BID #20 tablet predniSONE [Prednisone] 3 tab PO DAILY #18 tab
[2017-11-14 11:19] LABS: Troponin I Less than 0.017 ng/ml (0.00-0.10)
[2017-11-14] MEDS ORDERED: METHYLPREDNISOLONE SOD SUCC/PF 125 MG/2 ML VIAL ONE (11:29)
[2017-11-14 12:32] VITALS: BP 125/78
== END 2017-11-14 12:44 | disposition home or self-care (01) ==
LOC: ER 10:38
DX: J44.1 Chronic obstructive pulmonary disease with (acute) exacerbation; E78.5 Hyperlipidemia, unspecified; Z99.81 Dependence on supplemental oxygen; I48.91 Unspecified atrial fibrillation; Z87.891 Personal history of nicotine dependence